=== PATIENT | female | born 1960 | race Caucasian/White ===

== ENCOUNTER → 2017-01-15 | Outpatient (CLI) | payer OTHER, MEDICAID ==
[~2017-01-15] MED LIST: ACETAMINOPHEN650 M5 PO; ADVAIR 250-501 EACH INH; AMBIEN 5 MG TABL5 M1 PO; AMITRIPTYLINE H25 M2 PO; ARMOUR THYROID60 M1 PO; BACTROBAN CREAM30 G1 TOP; CARVEDILOL12.5 MG PO; CARVEDILOL3.125 MG PO; CLONAZEPAM 1 MG1 M1 PO; CLONAZEPAM PO; COREG PO; COREG3.125 MG PO; COUMADIN 4 MG TA4 M1 PO; COUMADIN 5 MG TA5 M1 PO; CYMBALTA60 MG PO; DOCUSATE SODIU100 MG PO; EFFEXOR PO; FLECAINIDE ACE100 MG PO; FLEXERIL PO; FOLIC ACID1 MG PO; GABAPENTIN100 MG PO; HYDROCODON-ACE1 EA12 PO; HYDROCODON-ACE1 EAC8 PO; IMODIUM ADVANC1 EAC1 PO; JANTOVEN5 MG PO; KEFLEX500 MG PO; KLOR-CON 10 ER10 MEQ PO; LASIX 40 MG TAB40 M1 PO; LISINOPRIL2.5 MG PO; METHADOSE10 M1 PO; METHOTREXATE 22.5 MG PO; MULTIVITAMINS PO; NADOLOL 40 MG T40 M1 PO; NAMENDA 10 MG T10 MG PO; NEURONTIN 400400 M1 PO; NEXIUM20 M1 PO; NITROQUICK0.4 MG SL; NITROQUICK0.4 MG SUBLING; NORCO 7.5-3251 EACH PO; NOVOLOG100 UNIT/1; NYSTATIN15 GM; ONDANSETRON HCL4 M1 IV; OXYGEN; PAIN MEDICATION PO; PERCOCET 5-3251 EACH PO; POTASSIUM20 PO; PREDNISONE 10 M10 M1 PO; PREDNISONE 10 M10 MG PO; PREDNISONE 5 MG5 M1 PO; PRILOSEC 20 MG20 MG PO; PRILOSEC40 MG PO; PROVENTIL INH; RANITIDINE 150150 MG PO; ROXICET 5-5001 EACH PO; WELLBUTRIN SR150 MG PO
--- NOTE | ~2017-01-15 | 2DMMODE ---
[facility] [address] [place] [address] 2 D/M-MODE ECHOCARDIOGRAM Name: MATUTEKANDY E Room #: [facility] [id number] Admission: 01/15/17 Attend Phys: Remberto Chao Discharge: Date of : 56 Date of Service: 01/15/17 1156 Report #: [id number] THIS REPORT FOR: //name// APPROVED REPORT Study performed: 01/15/2017 10:24:13 EXAM: Comprehensive 2D, Doppler, and color-flow Echocardiogram Patient Location: Out-Patient Room #: Echo lab Status: routine BSA: 1.80 HR: 65 bpm BP: 144/90 mmHg Other Information Study Quality: Adequate Indications ICD: Mitral Valve Disease Atrial Fibrillation Hypertension/HDD Cardiac arrest, HTN. 2D Dimensions RVDd: 45.41 mm LVEF(%): 54.80 (>50%) IVSd: 9.71 (7-11mm) LVOT Diam: 20.59 (18-24mm) LVDd: 53.54 mm PWd: 9.30 (7-11mm) Ascending Ao: 34.19 (22-36mm) LVDs: 38.17 (25-40mm) Aortic Root: 31.38 mm IVC: 21.00 mm Garcia's LVEF: 54.80 % Volumes Left Atrial Volume (Systole) Single Plane 4CH: 87.26 mL Single Plane 2CH: 128.15 mL LA ESV Index: 63.00 mL/m2 Aortic Valve AoV Peak Vikram.: 1.35 m/s AO Peak Gr.: 7.24 mmHg LVOT Max P.64 mmHg LVOT Max V: 1.08 m/s JESSICA Vmax: 2.67 cm2 [facility] [place] [place] [address] 2 D/M-MODE ECHOCARDIOGRAM Name: KANDY MATUTE Room #: [facility] RachidShannon#: [id number] Admission: 01/15/17 Attend Phys: Remberto Chao Discharge: Date of : 56 Date of Service: 01/15/17 1156 Report #: [id number] Mitral Valve MV Peak Gr.: 13.61 mmHg MV Mean Gr.: 8.02 mmHg E/A Ratio: 1.5 MV Decel. Time: 410.14 ms MV E Max Vikram.: 1.78 m/s MV A Vikram.: 1.21 m/s MV Max Vikram.: 1.84 m/s MV Mean Vikram.: 1.39 m/s MV VTI: 594.89 mm MV PHT: 118.94 ms MVA (PHT): 1.53 cm2 IVRT: 147.64 ms Pulmonary Valve PV Peak Vikram.: 0.81 m/s PV Peak Gr.: 2.64 mmHg Tricuspid Valve TR Peak Vikram.: 2.99 m/s RAP Estimate: 10.00 mmHg TR Peak Gr.: 35.84 mmHg PA Pressure: 46.00 mmHg Left Ventricle The left ventricle is normal size. There is normal LV segmental wall motion. There is normal left ventricular wall thickness. The left ventricular systolic function is normal. The left ventricular ejection fraction is within the normal range. LVEF is 50-55%. This study is not technically sufficient to allow evaluation of the LV diastolic function. Right Ventricle The right ventricle is normal size. The right ventricular systolic function is normal. Device lead is present in the right ventricle. Atria Left atrium is dilated. Right atrium is mildly dilated. Device lead is present in the right atrium. Aortic Valve Aortic valve is calcified. Trace aortic regurgitation. There is no aortic valvular stenosis. Mitral Valve There is a prosthetic mitral valve. Trace mitral regurgitation. Tricuspid Valve [facility] [address] [place] [address] 2 D/M-MODE ECHOCARDIOGRAM Name: KANDY MATUTE Room #: REG CL [facility]#: [id number] Admission: 01/15/17 Attend Phys: Remberto Chao Discharge: Date of : 56 Date of Service: 01/15/17 1156 Report #: [id number] The tricuspid valve is normal in structure. Mild tricuspid regurgitation. Pulmonic Valve The pulmonary valve is normal in structure. Great Vessels IVC is dilated and collapses >50% with inspiration. Pericardium There is no pericardial effusion. <Conclusion> The left ventricular systolic function is normal. There is normal LV segmental wall motion. LVEF is 50-55%. Both atria are dilated. Device lead in right heart Aortic valve is calcified. no aortic valvular stenosis, trace insufficiency. There is a prosthetic mitral valve, peak gradient 13.6mm, mean 8mmHg; trace insufficiency. Similar gradients seen on echocardiogram in 2013 Pulmonary artery pressure of 35mmHg There is no pericardial effusion. <ELECTRONICALLY SIGNED> By: Freddy Ramirez MD, FACC 01/15/17 1156 1156 1156 Freddy Ramirez MD, FACC /INF
== END ==
LOC: CV 11-14 08:48
DX: I10 Essential (primary) hypertension (principal); I48.0 Paroxysmal atrial fibrillation

== ENCOUNTER → 2018-01-15 | Outpatient (CLI) | payer OTHER ==
--- NOTE | ~2018-01-15 | 2DMMODE ---
[facility] [address] [place] [address] 2 D/M-MODE ECHOCARDIOGRAM Name: MATUTEKANDY E Room #: REG [facility]#: [id number] Admission: 01/15/18 Attend Phys: Remberto Chao Discharge: Date of : 56 Date of Service: 01/15/18 1629 Report #: [id number] THIS REPORT FOR: //name// APPROVED REPORT Study performed: 01/15/2018 13:55:10 EXAM: Comprehensive 2D, Doppler, and color-flow Echocardiogram Patient Location: Out-Patient Room #: Echo lab 2 Status: routine BSA: 1.83 HR: 73 bpm BP: 144/90 mmHg Rhythm: Pacemaker Other Information Study Quality: Adequate Indications Mitral Valve Disease Atrial Fibrillation Pacemaker Hypertension/HDD 2D Dimensions RVDd: 42.94 mm LVEF(%): 50.01 (>50%) IVSd: 14.16 (7-11mm) LVOT Diam: 19.75 (18-24mm) LVDd: 45.94 mm PWd: 13.13 (7-11mm) Ascending Ao: 33.82 (22-36mm) LVDs: 34.32 (25-40mm) Aortic Root: 39.63 mm Garcia's LVEF: 50.01 % Volumes Left Atrial Volume (Systole) Single Plane 4CH: 119.61 mL Aortic Valve AoV Peak Vikram.: 1.54 m/s AO Peak Gr.: 9.48 mmHg LVOT Max P.97 mmHg LVOT Max V: 1.11 m/s JESSICA Vmax: 2.22 cm2 Mitral Valve [facility] [address] [place] [address] 2 D/M-MODE ECHOCARDIOGRAM Name: KANDY MATUTE Room #: REG [facility]annon[facility] [id number] Admission: 01/15/18 Attend Phys: Remberto Chao Discharge: Date of : 56 Date of Service: 01/15/18 1629 Report #: [id number] MV Peak Gr.: 14.94 mmHg MV Mean Gr.: 7.92 mmHg E/A Ratio: 1.1 MV Decel. Time: 431.54 ms MV E Max Vikram.: 1.76 m/s MV A Vikram.: 1.62 m/s MV Max Vikram.: 1.93 m/s MV Mean Vikram.: 1.36 m/s MV VTI: 623.10 mm MV PHT: 125.15 ms MVA (PHT): 1.85 cm2 Pulmonary Valve PV Peak Vikram.: 0.86 m/s PV Peak Gr.: 2.95 mmHg Tricuspid Valve TR Peak Vikram.: 2.83 m/s TR Peak Gr.: 32.14 mmHg PA Pressure: 32.00 mmHg Left Ventricle The left ventricle is normal size. There is normal LV segmental wall motion. Mild concentric left ventricular hypertrophy. The left ventricular systolic function is normal. Discordant septal motion probably from RV pacing. LVEF is 55%. This study is not technically sufficient to allow evaluation of the LV diastolic function. Right Ventricle The right ventricle is normal size. The right ventricular systolic function is normal. Atria Left atrium is dilated. Right atrium is dilated. Aortic Valve The aortic valve is normal in structure. No aortic regurgitation is present. There is no aortic valvular stenosis. Mitral Valve There is a mechanical mitral valve (Peak gradient 15mm, mean 8mmHg) There is no mitral valve regurgitation noted. Tricuspid Valve The tricuspid valve is normal in structure. There is mild tricuspid regurgitation. Estimated PAP 32 mmHg plus the right atrial pressure. There is mild pulmonary hypertension. [address] [address] 2 D/M-MODE ECHOCARDIOGRAM Name: KANDY MATUTE Room #: REG CL Oni#: [id number] Admission: 01/15/18 Attend Phys: [facility]emberto [facility] Dis[facility]: Date of : 56 Date of Service: 01/15/18 1629 Report #: [id number] Pulmonic Valve The pulmonary valve is normal in structure. There is no pulmonic valvular regurgitation. Great Vessels The aortic root is normal in size. IVC is not well visualized. Pericardium There is no pericardial effusion. <Conclusion> The left ventricular systolic function is normal. Discordant septal motion probably from RV pacing. There is normal LV segmental wall motion. LVEF 55%. Both atria are dilated. Pacing wires noted in right heart The aortic valve is normal in structure. No aortic regurgitation or stenosis There is a mechanical mitral valve (Peak gradient 15mm, mean 8mmHg). No mitral valve regurgitation There is mild tricuspid regurgitation. Estimated pulmonary artery pressure of 32 mmHg plus the right atrial pressure. There is no pericardial effusion. <ELECTRONICALLY SIGNED> By: Freddy Ramirez MD, FACC 01/15/18 1629 1629 1629 Freddy Ramirez MD, FACC /INF
== END ==
LOC: CV 08:49
DX: I07.1 Rheumatic tricuspid insufficiency (principal); I27.20 Pulmonary hypertension, unspecified; I10 Essential (primary) hypertension; I48.91 Unspecified atrial fibrillation; I34.0 Nonrheumatic mitral (valve) insufficiency; I42.9 Cardiomyopathy, unspecified; Z95.0 Presence of cardiac pacemaker